=== PATIENT | female | born 1970 | race African-American/Black ===

== ENCOUNTER 2016-12-20 09:12 | Emergency (ER) | payer OTHER ==
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
== END 2016-12-20 09:30 | disposition home or self-care (01) ==
LOC: CFTX 09:12
DX: S16.1XXA Strain of muscle, fascia and tendon at neck level, initial encounter (principal); S76.012A Strain of muscle, fascia and tendon of left hip, initial encounter; S39.012A Strain of muscle, fascia and tendon of lower back, initial encounter; J45.909 Unspecified asthma, uncomplicated; F17.210 Nicotine dependence, cigarettes, uncomplicated; Z88.0 Allergy status to penicillin; V43.52XA Car driver injured in collision with other type car in traffic accident, initial encounter; Y93.89 Activity, other specified; Y92.410 Unspecified street and highway as the place of occurrence of the external cause
CPT/HCPCS: 72040; 72100; 73502; 96372; 99284; J1885